=== PATIENT | female | born 1965 | race Two or more races ===

== ENCOUNTER 2016-08-26 20:34 | Emergency (ER) | payer OTHER ==
[2016-08-26 20:58] VITALS: BP 125/81; PULSE 72; TEMP 97.9; BMI 21.0
--- NOTE | 2016-08-26 22:03 | PDOC ---
History of Present Illness - General Chief Complaint: Pain Stated Complaint: L LEG PAIN Time Seen by Provider: 08/26/16 21:55 History Source: Patient Exam Limitations: No Limitations - History of Present Illness Initial Comments: 08/26/16 22:49 Chief complaint: Toe injury Patient is a 51-year-old female who states that she hit her left toe, today and now has swelling and discoloration to the fourth toe with some pain. Patient is able to ambulate. No other complaints. GENERAL/CONSTITUTIONAL: No fever, weakness. dizziness HEAD, EYES, EARS, NOSE AND THROAT: No change in vision. No ear pain or discharge. No sore throat. CARDIOVASCULAR: No chest pain RESPIRATORY: No shortness of breath or cough GASTROINTESTINAL: No pain, nausea, vomiting, diarrhea or constipation GENITOURINARY: No dysuria MUSCULOSKELETAL: No neck or back pain, + toe SKIN: No rash NEUROLOGIC: No headache, vertigo, loss of consciousness, or loss of sensation. GENERAL: The patient is awake, alert, and fully oriented, in no acute distress. HEAD: Normal with no signs of trauma. EYES: Pupils equal, round and reactive to light, sclera anicteric, conjunctiva clear. ENT: pharynx: no erythema, no exudate, uvula midline NECK: supple CHEST: clear, nontender, rr EXTREMITIES: Left 4th toe with mild tenderness, no deformity, is ecchymotic, able to flex and extend, rest of exam of the foot and extremities, show no acute injury, Normal range of motion, no edema. NEUROLOGICAL: Normal speech, normal gait. SKIN: Warm, Dry Past History - Past Medical History Allergies/Adverse Reactions: Allergies Allergy/AdvReac Type Severity Reaction Status Date / Time No Known Allergies Allergy Verified 08/26/16 20:55 Home Medications: Ambulatory Orders NK [No Known Home Medication] 08/26/16 Other medical history: Pt denies - Psycho/Social/Smoking Cessation Hx Suicidal Ideation: No Smoking History: Never smoked Hx Alcohol Use: No Drug/Substance Use Hx: No Substance Use Type: None *Physical Exam - Vital Signs Last Vital Signs Temp Pulse Resp BP Pulse Ox 97.9 F 72 18 125/81 99 08/26/16 20:55 08/26/16 20:55 08/26/16 20:55 08/26/16 20:55 08/26/16 20:55 *DC/Admit/Observation/Transfer Diagnosis at time of Disposition: Toe fracture, left Qualifiers: Encounter type: initial encounter Toe: lesser toe Fracture type: closed Phalanx : distal Fracture alignment: nondisplaced Qualified Code(s): S92.535A - Nondisplaced fracture of distal phalanx of left lesser toe(s), initial encounter for closed fracture - Discharge Dispostion Disposition: HOME Condition at time of disposition: Stable Admit: No - Referrals Referrals: Delma Dowling MD [Primary Care Provider] - Guicho Freeman MD [Staff Physician] - - Patient Instructions Printed Discharge Instructions: DI for Toe Fracture Additional Instructions: Elevate, tape as shown You can apply ice for 20 minutes every 2 hours for the next 2 days Motrin 600 mg every 6 hours for pain. Call the orthopedist if any other issues
[2016-08-26] MEDS ORDERED: IBUPROFEN 600 MG TABLET (FP) PO ONE ×2 (22:52)
== END 2016-08-26 22:56 | disposition home or self-care (01) ==
LOC: JERFT 20:34
DX: S92.535A Nondisplaced fracture of distal phalanx of left lesser toe(s), initial encounter for closed fracture (principal); W22.8XXA Striking against or struck by other objects, initial encounter; Y93.89 Activity, other specified; Y92.89 Other specified places as the place of occurrence of the external cause
CPT/HCPCS: 73660-TC; 99281-25

== ENCOUNTER 2017-10-24 15:20 | Emergency (ER) | payer OTHER ==
[2017-10-24 15:24] VITALS: BP 145/88; PULSE 67; TEMP 98.3; BMI 23.8
--- NOTE | 2017-10-24 15:42 | PDOC ---
History of Present Illness - General Chief Complaint: Rash Stated Complaint: INSECT BITE Time Seen by Provider: 10/24/17 15:35 History Source: Patient Exam Limitations: No Limitations - History of Present Illness Initial Comments: 10/24/17 15:38 itchy rash to left arm now spreading to right arm Timing/Duration: reports: just prior to arrival Severity: Yes: mild Location: reports: extremities Past History - Past Medical History Allergies/Adverse Reactions: Allergies Allergy/AdvReac Type Severity Reaction Status Date / Time No Known Allergies Allergy Verified 10/24/17 15:24 Home Medications: Ambulatory Orders Hydrocortisone Valerate [Westcort 0.2% Cream -] 1 applic TP TID #1 tube COPD: No - Suicide/Smoking/Psychosocial Hx Smoking History: Never smoked Hx Alcohol Use: No Drug/Substance Use Hx: No Substance Use Type: None Review of Systems - Review of Systems Able to Perform ROS?: Yes Is the patient limited O[place]i proficient: No Constitutional: No: Symptoms Reported HEENTM: No: Symptoms Reported Respiratory: No: Symptoms reported Cardiac (ROS): No: Symptoms Reported ABD/GI: No: Symptoms Reported : No: Symptoms Reported Musculoskeletal: No: Symptoms Reported Integumentary: Yes: Symptoms Reported, Rash *Physical Exam - Vital Signs Last Vital Signs Temp Pulse Resp BP Pulse Ox 98.3 F 67 18 145/88 96 10/24/17 15:22 10/24/17 15:22 10/24/17 15:22 10/24/17 15:22 10/24/17 15:22 - Physical Exam General Appearance: Yes: Nourished, Appropriately Dressed HEENT: positive: EOMI, MENDEZ, Normal ENT Inspection, TMs Normal, Pharynx Normal Neck: positive: Supple. negative: Tender Respiratory/Chest: positive: Lungs Clear, Normal Breath Sounds Musculoskeletal: positive: Normal Inspection Extremity: positive: Normal Capillary Refill, Normal Inspection, Normal Range of Motion Integumentary: positive: Rash (left arm, right arm with vesicular erythematous rash in patches ) Neurologic: positive: Fully Oriented, Alert, Normal Mood/Affect, Normal Response , Motor Strength 5/5 Medical Decision Making - Medical Decision Making 10/24/17 15:39 cc: rash to arms spreading, only patches on forearms left more than right no facial or genital involvement possibly exposed to poison reji will prescribe cortisone cream 10/24/17 15:41 *DC/Admit/Observation/Transfer Diagnosis at time of Disposition: Poison reji dermatitis - Discharge Dispostion Disposition: HOME - Prescriptions Prescriptions: Hydrocortisone Valerate [Westcort 0.2% Cream -] 1 applic TP TID #1 tube - Referrals Referrals: Virginia Barton MD [Primary Care Provider] - - Patient Instructions Additional Instructions: apply the cream three times a day to the rash take a non dorwsy antihistamine such as sara, zyrtec or claritin daily for at least 2 weeks if the rash gets worse or you have any rash on your face return to ER or see your primary care - Post Discharge Activity
== END 2017-10-24 15:42 | disposition home or self-care (01) ==
LOC: JERFT 15:20
DX: L23.7 Allergic contact dermatitis due to plants, except food (principal)
CPT/HCPCS: 99281-25